=== PATIENT | male | born 1955 | race African-American/Black ===

== ENCOUNTER 2022-01-24 07:55 | Day surgery (SDC) | payer MEDICARE ==
[2022-01-22 14:14] VITALS: BMI 25.0
[2022-01-24] MEDS ORDERED: PROPOFOL 60 ML ONE (08:07)
[2022-01-24] MEDS ORDERED: Lidocaine 1% PF 5 ML VIAL ONE (08:07)
[2022-01-24] MEDS ORDERED: Lidocaine 1% MPF 2 ML VIAL ONE (08:59)
== END 2022-01-24 13:55 | disposition home or self-care (01) ==
LOC: CSHSDC 07:55
PROVIDERS: ATTEND Internal Medicine Gastroenterology
PROC: 0DBK8ZZ Excision of Ascending Colon, Via Natural or Artificial Opening Endoscopic (ICD-10-PCS; principal; 2022-01-24)
PROC: 0DBN8ZZ Excision of Sigmoid Colon, Via Natural or Artificial Opening Endoscopic (ICD-10-PCS; 2022-01-24)
DX: Z12.11 Encounter for screening for malignant neoplasm of colon (principal); D12.2 Benign neoplasm of ascending colon; D12.5 Benign neoplasm of sigmoid colon; K64.9 Unspecified hemorrhoids
CPT/HCPCS: 88305; J2704

== ENCOUNTER 2025-03-30 15:28 | Outpatient (CLI) | payer MEDICARE | END 2025-03-30 15:29 | disposition home or self-care (01) | LOC: CSHWCC 15:28 | PROVIDERS: ATTEND Nurse Practitioner Family | DX: N30.41 Irradiation cystitis with hematuria (principal); L59.8 Other specified disorders of the skin and subcutaneous tissue related to radiation | CPT/HCPCS: G0277 ==

== ENCOUNTER 2025-04-25 12:52 | Outpatient (CLI) | payer MEDICARE | END 2025-04-25 12:53 | disposition home or self-care (01) | LOC: CSHWCC 12:52 | PROVIDERS: ATTEND Nurse Practitioner Family | DX: N30.41 Irradiation cystitis with hematuria (principal); L59.8 Other specified disorders of the skin and subcutaneous tissue related to radiation | CPT/HCPCS: G0277 ==

== ENCOUNTER 2025-04-26 13:18 | Outpatient (CLI) | payer MEDICARE | END 2025-04-26 13:19 | disposition home or self-care (01) | LOC: CSHWCC 13:18 | PROVIDERS: ATTEND Nurse Practitioner Family | DX: N30.41 Irradiation cystitis with hematuria (principal); L59.8 Other specified disorders of the skin and subcutaneous tissue related to radiation | CPT/HCPCS: G0277 ==

== ENCOUNTER 2025-05-02 13:04 | Outpatient (CLI) | payer MEDICARE | END 2025-05-02 13:05 | disposition home or self-care (01) | LOC: CSHWCC 13:04 | PROVIDERS: ATTEND Nurse Practitioner Family | DX: N30.41 Irradiation cystitis with hematuria (principal); L59.8 Other specified disorders of the skin and subcutaneous tissue related to radiation | CPT/HCPCS: G0277 ==

== ENCOUNTER 2025-05-03 12:30 | Outpatient (CLI) | payer MEDICARE | END 2025-05-03 12:31 | disposition home or self-care (01) | LOC: CSHWCC 12:30 | PROVIDERS: ATTEND Nurse Practitioner Family | DX: N30.41 Irradiation cystitis with hematuria (principal); L59.8 Other specified disorders of the skin and subcutaneous tissue related to radiation | CPT/HCPCS: G0277 ==

== ENCOUNTER 2025-05-09 12:30 | Outpatient (CLI) | payer MEDICARE | END 2025-05-09 12:31 | disposition home or self-care (01) | LOC: CSHWCC 12:30 | PROVIDERS: ATTEND Nurse Practitioner Family | DX: N30.41 Irradiation cystitis with hematuria (principal); L59.8 Other specified disorders of the skin and subcutaneous tissue related to radiation | CPT/HCPCS: G0277 ==

== ENCOUNTER 2025-05-10 15:10 | Outpatient (CLI) | payer MEDICARE | END 2025-05-10 15:11 | disposition home or self-care (01) | LOC: CSHWCC 15:10 | PROVIDERS: ATTEND Nurse Practitioner Family | DX: N30.41 Irradiation cystitis with hematuria (principal); L59.8 Other specified disorders of the skin and subcutaneous tissue related to radiation | CPT/HCPCS: G0277 ==

== ENCOUNTER 2025-05-11 12:49 | Outpatient (CLI) | payer MEDICARE | END 2025-05-11 12:50 | disposition home or self-care (01) | LOC: CSHWCC 12:49 | PROVIDERS: ATTEND Nurse Practitioner Family | DX: N30.41 Irradiation cystitis with hematuria (principal); L59.8 Other specified disorders of the skin and subcutaneous tissue related to radiation | CPT/HCPCS: G0277 ==

== ENCOUNTER 2025-05-15 12:30 | Outpatient (CLI) | payer MEDICARE | END 2025-05-15 12:31 | disposition home or self-care (01) | LOC: CSHWCC 12:30 | PROVIDERS: ATTEND Nurse Practitioner Family | DX: N30.41 Irradiation cystitis with hematuria (principal); L59.8 Other specified disorders of the skin and subcutaneous tissue related to radiation | CPT/HCPCS: G0277 ==

== ENCOUNTER 2025-05-16 16:02 | Outpatient (CLI) | payer MEDICARE | END 2025-05-16 16:03 | disposition home or self-care (01) | LOC: CSHWCC 16:02 | PROVIDERS: ATTEND Nurse Practitioner Family | DX: N30.41 Irradiation cystitis with hematuria (principal); L59.8 Other specified disorders of the skin and subcutaneous tissue related to radiation | CPT/HCPCS: G0277 ==